=== PATIENT | female | born 1985 | race Caucasian/White ===

== ENCOUNTER → 2017-07-07 | Outpatient (CLI) | payer OTHER ==
--- NOTE | 2017-07-07 12:51 | Diagnostic Imaging Report ---
History:Fell forward, bruising around eyes and nose Comparison studies: None Technique: Axial images were obtained through the maxillofacial region. Coronal and sagittal images reconstructed from the axial data. Intravenous contrast: None Findings: Soft tissues: Mild infraorbital/premaxillary soft tissue swelling Bones: No fractures or bone abnormalities. Orbits: Globes: Intact Extra or intraconal abnormalities: None. Paranasal sinuses: Focal mucosal thickening at the right maxillary sinus anterior wall, the remaining paranasal sinuses are clear. Non erupted mandibular and maxillary molars. IMPRESSION: 1. Mild infraorbital/premaxillary soft tissue swelling, without underlying fracture Signed by: DR Foster Contreras M.D. on 07/07/2017 12:47 PM
== END ==
LOC: CT 10:33
PROVIDERS: ATTEND Family Medicine
DX: S00.83XA Contusion of other part of head, initial encounter (principal); W19.XXXA Unspecified fall, initial encounter
CPT/HCPCS: 70486